=== PATIENT | female | born 1990 | race Caucasian/White ===

== ENCOUNTER 2024-10-22 14:31 | Emergency (ER) | payer OTHER ==
[~2024-10-22] VITALS: Ht 167.6 cm; Wt 65.8 kg
[2024-10-22 16:11] LABS: CALCIUM, SERUM 8.5 mg/dL (8.5-10.1); CREATININE 0.9 mg/dL (0.6-1.3); POTASSIUM 3.7 mmol/L (3.5-5.1)
[2024-10-22] MEDS: CEFEPIME 1 GM in IV D5W 50 ML IV ONE (16:11)
[2024-10-22] MEDS: IV NS 0.9% 1,000 ML BAG IV ONE (16:11)
[2024-10-22 16:20] LABS: LACTIC ACID 0.9 mmol/L (0.4-2.0)
[2024-10-22 16:22] LABS: BASOPHILS % (AUTO) 0.4 % (0.0-2.0); EOSINOPHILS # (AUTO) 0.1 K/uL (0.0-0.7); EOSINOPHILS % (AUTO) 1.4 % (0.0-6.0); HEMATOCRIT 35 % (33-45); HEMOGLOBIN 11.6 g/dL (11.5-14.8); LYMPHOCYTES # (AUTO) 0.7 K/uL (0.8-4.8); LYMPHOCYTES % (AUTO) 9.3 % (20.0-44.0); MEAN CORPUSCULAR HEMOGLOBIN 27 PG (26.0-33.0); MEAN CORPUSCULAR HGB CONC 34 g/dl (31.0-36.0); MEAN CORPUSCULAR VOLUME 79 fL (82-100); MONOCYTES # (AUTO) 0.4 K/uL (0.1-1.30); MONOCYTES % (AUTO) 5.1 % (2.0-12.0); NEUTROPHILS % (AUTO) 83.8 % (43.0-81.0); PLATELET COUNT (AUTO) 325 K/uL (150-450); RED BLOOD CELL COUNT(AUTO) 4.39 MIL/uL (4.0-5.2); RED CELL DISTRIBUTION WIDTH 14.9 % (11.5-15.0); WHITE BLOOD COUNT (AUTO) 7.2 K/uL (4.3-11.0)
[2024-10-22] MEDS: VANCOMYCIN 1 GM in IV D5W 250 ML IV ONE (16:41)
[2024-10-22] MEDS ORDERED: DOXY100C2 PO (18:31)
[2024-10-22] MEDS ORDERED: CEPH-570 PO (18:31)
[2024-10-22 18:44] VITALS: BP 122/78; TEMP 98.2; O2SAT 98
== END 2024-10-22 18:45 | disposition home or self-care (01) ==
LOC: ER 15:24
DX: N61.1 Abscess of the breast and nipple (principal); N64.89 Other specified disorders of breast; N64.4 Mastodynia
CPT/HCPCS: 99285; 96365; 96367; 96361; 96366; 76642; 85025; 80048; 87040 ×2; 83605; 36415; 84702; J3370; J7060; A4223; J0692

== ENCOUNTER 2025-09-06 18:24 | Emergency (ER) | payer MEDICAID, OTHER ==
[~2025-09-06] VITALS: Ht 167.6 cm; Wt 63.5 kg
[~2025-09-06 18:24] MED LIST: CEPH-570 PO; DOXY100C2 PO
[2025-09-06 21:08] LABS: PLATELET COUNT (AUTO) 273 K/uL (150-450); RED BLOOD CELL COUNT(AUTO) 4.55 MIL/uL (4.0-5.2); RED CELL DISTRIBUTION WIDTH 15.8 % (11.5-15.0); WHITE BLOOD COUNT (AUTO) 4.6 K/uL (4.3-11.0)
[2025-09-06 21:23] LABS: CALCIUM, SERUM 8.5 mg/dL (8.5-10.1); CREATININE 0.9 mg/dL (0.6-1.3); SODIUM SERUM 139.0 mmol/L (136-145); UREA NITROGEN, BLOOD 17.0 mg/dL (7-18)
[2025-09-06 21:31] LABS: ASPARTATE AMINOTRANSFERASE 20.0 U/L (15-37); TOTAL PROTEIN, SERUM 8.0 g/dL (6.4-8.2)
[2025-09-06] MEDS ORDERED: ACETAMINOPHEN 325 MG TABLET ONE (21:45)
[2025-09-06] MEDS: ACETAMINOPHEN 325 MG TABLET PO ONE (21:47)
[2025-09-06] MEDS ORDERED: ACET325C7 PO (21:47)
[2025-09-06] MEDS ORDERED: LIDO30AD10 TP (22:02)
[2025-09-06] MEDS ORDERED: METH-649 PO (22:02)
[2025-09-06 23:24] VITALS: BP 112/81; TEMP 98.4; O2SAT 100
== END 2025-09-06 23:25 | disposition home or self-care (01) ==
LOC: ER 18:28
DX: M54.2 Cervicalgia (principal); R10.33 Periumbilical pain; R51.9 Headache, unspecified; R10.20 Pelvic and perineal pain unspecified side; Z91.048 Other nonmedicinal substance allergy status
CPT/HCPCS: 36415; 72050-TC; 80053-TC; 83690-TC; 84702-TC; 85025-TC